=== PATIENT | male | born 1970 | race African-American/Black ===

== ENCOUNTER 2021-03-24 11:30 | Outpatient (CLI) | payer BC | END 2021-03-24 11:31 | disposition home or self-care (01) | LOC: CT 11:30 | PROVIDERS: ATTEND Urology | DX: C61 Malignant neoplasm of prostate (principal); N28.9 Disorder of kidney and ureter, unspecified; K42.9 Umbilical hernia without obstruction or gangrene; M47.816 Spondylosis without myelopathy or radiculopathy, lumbar region | CPT/HCPCS: 72197; 74178 ==

== ENCOUNTER 2021-07-20 08:26 | Outpatient (CLI) | payer BC | END 2021-07-20 08:27 | disposition home or self-care (01) | LOC: RAD 08:26 | PROVIDERS: ATTEND Urology | DX: C61 Malignant neoplasm of prostate (principal); Z90.79 Acquired absence of other genital organ(s) | CPT/HCPCS: 51600; 74430 ==

== ENCOUNTER 2021-12-15 14:56 | Outpatient (CLI) | payer BC | END 2021-12-15 14:57 | disposition home or self-care (01) | LOC: BICRAD 14:56 | PROVIDERS: ATTEND Family Medicine | DX: M54.9 Dorsalgia, unspecified (principal); M47.816 Spondylosis without myelopathy or radiculopathy, lumbar region | CPT/HCPCS: 72100 ==